=== PATIENT | male | born 1960 | race Caucasian/White ===

== ENCOUNTER 2017-05-02 05:32 | Emergency (ER) | payer OTHER ==
[~2017-05-02] VITALS: Ht 177.8 cm; Wt 93.4 kg
[2017-05-02 05:37] VITALS: TEMP 36.4; Ht 177.8 cm; Wt 93.4 kg
[2017-05-02] MEDS ORDERED: CLIN300C2 PO (05:54)
[2017-05-02] MEDS ORDERED: LISI40TA PO (05:55)
[2017-05-02] MEDS: CLINDAMYCIN 150MG HOME PACK PO ONE (05:59)
[2017-05-02] MEDS: OXYCODONE IR HOME PACK PO ONE (05:59)
[2017-05-02] MEDS: BENZOCAINE 20% (ORAJEL) 11.9 GM TUBE MT STA (05:59)
--- NOTE | 2017-05-02 06:04 | EMERGENCY ROOM VISIT NOTE ---
History First contact with patient: 05:41 Chief Complaint: DENTAL PAIN Stated Complaint: TOOTH Nursing Triage Summary: Pt complains of left sided dental pain and swelling since Monday. History of Present Illness The patient is a 56 year old male who presents to the Emergency Room with complaints of left lower dental pain and swelling for the past few days that is steadily getting worse. Pain 8 out of 10. Worse with chewing and better with rest. It does not radiate. Patient has extensive dental decay. He does not have a dentist. Patient complains of facial pain and swelling. Patient denies chest pain, dyspnea, fevers, sore throat, dysphagia, neck pain, neck stiffness. Review of Systems See HPI for pertinent positives & negatives. A total of 10 systems reviewed and were otherwise negative. Past Medical/Surgical History Hypertension Social History Smoking Status: Current Every Day Smoker Drug Use: none Current/Historical Medications Scheduled Clindamycin Hcl (Cleocin), 300 MG PO QID Lisinopril (Zestril), 40 MG PO DAILY Physical Exam Vital Signs Date Time Temp Pulse Resp B/P (MAP) Pulse Ox O2 Delivery O2 Flow Rate FiO2 05/02/17 05:37 36.4 85 16 152/101 95 Room Air Physical Exam VITALS: Vitals are noted on the nurse's note and reviewed by myself. Vital signs hypertensive GENERAL: Pleasant male with tobacco odor, in no acute distress, nondiaphoretic, well-developed well-nourished. SKIN: The skin was without rashes, erythema, edema, or bruising. There is no tenting of the skin. Capillary reflex less than 2 seconds. HEAD: Normocephalic atraumatic. Face: Left lower jaw line erythematous and edematous concerning for mouth infection EARS: External auditory canals clear, tympanic membranes pearly santizo without erythema or effusion bilaterally. EYES: Pupils equal round and reactive to light and accommodation. Conjunctivae without injection, sclerae without icterus. Extraocular movements intact. NOSE: Patent, turbinates without inflammation or discharge. No sinus tenderness. MOUTH: Mucous membranes moist. Pharynx without erythema or exudate. Uvula midline. Airway patent. Tongue does not deviate. Dental exam: Extensive dental decay, left lower gumline erythematous and edematous with palpable abscess with overlying dental decay with exposed roots. No Kofi angina NECK: Supple without nuchal rigidity. left cervical lymphadenopathy. No thyromegaly. Cervical spine is nontender. No JVD. HEART: Regular rate and rhythm without murmurs gallops or rubs. LUNGS: Clear to auscultation bilaterally without wheezes, rales or rhonchi. No dullness to percussion. No retractions or accessory muscle use. MUSCULOSKELETAL: No muscle atrophy, erythema, or edema noted. NEURO: Patient was alert and oriented to person place and time. Normal sensation to light and sharp touch. No focal neurological deficits. Medical Decision & Procedures ED Course Prior records reviewed and summarized as above. Triage Nursing notes reviewed. The patient's history was concerning for swelling and dental pain Differential diagnosis: Etiologies such as cellulitis, abscess, gingivitis, Kofi angina, as well as others were entertained.. Physical examination: The physical examination was consistent with dental abscess and facial cellulitis ER treatment provided: Clindamycin On reassessment the patient felt better. Diagnostics interpreted by me: Consultation: A consultation was placed with the oral surgeon, Dr. Weiss. The case was discussed and recommended antibiotics and discharged to his office with Hep- Lock in place at 8 AM for definitive care for the dental infection. This appears to be facial and dental abscess. Patient was started on antibiotics. He will be seen by oral surgery within the hour for definitive care for his dental infection. He no signs of airway compromise. No Kofi angina. No signs of meningitis. He is afebrile and nontoxic. He is given his first dose of IV antibiotics. His aunt is driving. He is advised to go straight to Dr. Weiss's office for definitive care. He is agreeable to this. He was advised to return to the ER immediately for fevers, facial swelling, worsening signs or symptoms or as needed. By the evaluation outlined above emergent etiologies such as Kofi angina, as well as others were deemed relatively unlikely. The pt informed about the findings as listed above. All questions were answered and pleased with the treatment. Return instructions were outlined and the patient was discharged in stable condition. Outpatient prescription management: Cleocin Referral: The patient was referred to oral surgery now for a recheck of the current condition and definitive care for his infection. Medical Decision as above [place] Drug Monitoring Program Search Results: patient reviewed within database, no issues identified Medication Reconcilliation Current Medication List: was personally reviewed by me Blood Pressure Screening Patient's blood pressure: Elevated blood pressure Blood pressure disposition: Elevated BP felt to be situational Impression Primary Impression: Cellulitis and abscess of face Additional Impression: Periapical abscess Departure Information Dispostion Home / Self-Care Condition GOOD Prescriptions Clindamycin Hcl (CLEOCIN) 300 Mg Cap 300 MG PO QID for 10 Days, #40 CAP Prov: Parisa Vaughn PA-C 05/02/17 Referrals Nic Weiss D.D.S. Forms HOME CARE DOCUMENTATION FORM, IMPORTANT VISIT INFORMATION Patient Instructions Dental Abscess, My [facility] Additional Instructions Go straight to Dr. Weiss's office. Do not touch your IV lock. Leave this alone. He is awaiting for your arrival. Make sure you have a ride. Clindamycin 300mg: Take one pill 4 times daily for 10 days for your infection. Take with food, but avoid dairy. Avoid prolonged sun exposure since this medication makes you temporarily more susceptible to sunburns. All antibiotics can cause diarrhea. If this occurs and you feel worse or it does not resolve in 1-2 days follow up with your doctor or return to the Emergency Department as this could be signs of serious underlying problems. Any medication can cause an allergic reaction, stop the pills immediately and return to the ER for rash, hives, breathing difficulties, or swelling. Oxycodone (OxyIR) 5mg: Take 1-2 pills every four hours for breakthrough pain. Avoid alcohol, operating machinery or dangerous equipment, working on ladders or roofs, DRIVING, or situations where being under the influence may be dangerous. It is recommended to use an rzcw-wzv-grvjlop stool softener such as Colace, 100mg twice daily while taking this medication to avoid constipation. Ibuprofen(Motrin, Advil) may be used for fever or pain. Use 600mg every six hours as needed. Take with food. Avoid using more than 2400mg in a 24 hour period. Do not use 2400mg per day for more than three consecutive days without physician direction. Prolonged inappropriate use can lead to stomach upset or ulcers. This medication can be taken if you need to drive, work, or perform activities which may be dangerous when taking narcotic pain medication. (AND/OR) Acetaminophen(Tylenol) may be used for fever or pain. Use 1000mg every six hours as needed. Avoid using more than 3000mg in a 24 hour period. This medication can be taken if you need to drive, work, or perform activities which may be dangerous when taking narcotic pain medication. [place] teeth twice a day, floss daily and do warm saltwater gargles 3 times a day. Return to ER sooner for facial swelling, fever, redness, worsening signs or symptoms or as needed. Problem Qualifiers
[2017-05-02] MEDS: CLINDAMYCIN 600 MG/54 ML D5W IV ONE (06:07)
[2017-05-02 06:47] VITALS: BP 151/101; PULSE 82; O2SAT 94
== END 2017-05-02 06:49 | disposition home or self-care (01) ==
LOC: C.EDB 05:34
DX: L03.211 Cellulitis of face (principal); K04.7 Periapical abscess without sinus; I10 Essential (primary) hypertension; F17.200 Nicotine dependence, unspecified, uncomplicated; Z79.899 Other long term (current) drug therapy

== ENCOUNTER → 2018-01-12 | Day surgery (SDC) | payer OTHER ==
[~2018-01-12] VITALS: Ht 180.3 cm; Wt 98.0 kg
[~2018-01-12] MED LIST: ALBUTEROL; AMLO5TAB3 PO; ASPI81TA28 PO; BACITRACIN 50000 UNIT VIAL ONE; CEFAZOLIN 1000MG IV PUSH 7.5 ML IV SCH; CEFAZOLIN SOD 2000MG/15 ML IV PUSH ONE; DEXAMETHASONE SOD INJ 4 MG/ML VIAL ONE; EpHEDrine SULFATE INJ 50 MG/ML AMP ONE; FENTANYL CITRATE INJ 50 MCG/1 ML 2 ML VIAL ONE; GLYCOPYRROLATE INJ 0.2 MG/ML VIAL ONE; LIDOCAINE HCL 2% 2 ML VIAL (20MG/ML) ONE; LISI40TA PO; MIDAZOLAM HCL 1 MG/ML 2ML VIAL ONE; NEOSTIGMINE METHYLSULFATE 5 MG/5 ML SYR ONE; ONDANSETRON INJ 2 MG/ML 2 ML VIAL ONE; OXYC-57 PO; OXYCODONE/ACETAMINOPHEN 5-325 TAB PO PRN; PROPOFOL IV EMULSION 10 MG/ML 20 ML VIAL ONE; ROPIVACAINE 0.5% 5 MG/ML 30 ML VIAL ONE
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
--- NOTE | 2018-01-12 11:21 | History & Physical Bridge Note ---
H&P Re-Evaluation Bridge Note: I have examined the patient, reviewed the History & Physical and in the interval since the performance of the History & Physical I have noted the following changes of clinical significance: No changes noted
[2018-01-12 12:37] VITALS: BP 147/99; PULSE 70; TEMP 36.8; O2SAT 96; Ht 180.3 cm; Wt 98.0 kg
--- NOTE | 2018-01-12 16:44 | [facility] Post Operative Brief Note ---
Immediate Operative Summary Operative Date Jan 12, 2018. Pre-Operative Diagnosis Left ankle degenerative joint disease, left ankle achilles contracture, loose body posterior ankle Post-Operative Diagnosis Left ankle degenerative joint disease, left ankle achilles contracture, loose body posterior ankle Procedure(s) Performed Left Ankle Fusion with Autograft, Percutaneous Tendoachilles Lengthening, Autograft [place] from Fibula, Removal of Loose Body Posterior Ankle Surgeon Dr. Rick Gutierrez Basting Machine Operator Surgeon(s) Bob Sanchez PA-C Estimated Blood Loss 20cc Findings Consistent with Post-Op Diagnosis Specimens None Drains HV x 1 Anesthesia Type General Regional Complication(s) none Disposition Accompanied Pt To Recover: no Disposition: Recovery Room / PACU
--- NOTE | 2018-01-12 17:18 | DIAGNOSTIC IMAGING REPORT ---
L ANKLE 2 VIEWS HISTORY: 57 years-old Male LT ORIF ANKLE FX status post ORIF of the left ankle COMPARISON: None available TECHNIQUE: 2 views of the left ankle were obtained utilizing 32.3 seconds fluoroscopy time FINDINGS: Severe degenerative changes about the tibiotalar joint with absence of the distal fibula. There are 2 cannulated screws fixating the subtalar joint. Alignment is satisfactory. No acute fracture or retained foreign body identified. Expected postsurgical soft tissue swelling and deep tissue air about the ankle with posterior skin candida. IMPRESSION: Fluoroscopic assistance as above. Please see operative report for details. The above report was generated using voice recognition software. It may contain grammatical, syntax or spelling errors. Electronically signed by: Roberto Thapa M.D. 01/12/2018 5:17 PM Dictated Date/Time: 01/12/2018 5:15 PM
--- NOTE | 2018-01-12 17:18 | Discharge Instructions ---
Discharge Instructions Date of Service Jan 12, 2018. Visit Reason for Visit: Left Ankle/Foot Osteoarthritis, Loose Body In Ankl Discharge Discharge Diagnosis / Problem: Left Ankle Osteoarthritis Discharge Goals Goal(s): Decrease discomfort, Improve function Activity Recommendations Activity Limitations: per Instructions/Follow-up section Weightbearing Status: Left weightbearing, Left non-weightbearing Anesthesia . Post Anesthesia Instructions: If you have had General Anesthesia or IV Sedation: * Do not drive today. * Resume driving when surgeon permits. * Do not make important decisions or sign legal documents today. * Call surgeon for: 1. Temperature elevations greater than 101 degrees F. 2. Uncontrollable pain. 3. Excessive bleeding. 4. Persistent nausea and vomiting. 5. Medication intolerance (nausea, vomiting or rash). * For nausea and vomiting use only clear liquids such as: tea, soda, bouillon until nausea subsides, then gradually increase diet as tolerated. * If you have any concerns or questions, call your surgeon's office. If physician is unavailable and it is an emergency, call 911 or go to the nearest emergency room. . Instructions / Follow-Up Instructions / Follow-Up ACTIVITY RECOMMENDATIONS: Limitations: No weight bearing to affected limb at all times. SPECIAL CARE INSTRUCTIONS: * REMOVE YOUR DRAIN MONDAY AT APPROXIMATELY 9:00 AM. LOOSEN THE AUTUMN WRAP. YOU MAY CUT THE THICK COTTON IF YOU NEED TO FOLLOW THE DRAIN TO WHERE IT IS COMING OUT OF THE SKIN. PULL GENTLY UNTIL IT COMES COMPLETELY OUT. REWRAP THE AUTUMN WRAP BACK AROUND THE COTTON DRESSING. * Some drainage onto the dressing is normal and is no cause for alarm. * Some swelling is natural especially after walking. * When resting, keep your foot elevated above the level of your heart. * Call [facility] if you notice: -Increased drainage -Fever over 101 degrees F -Severe constant pain BANDAGE: * Leave bandage/cast in place unless otherwise directed. * Keep bandage/cast dry at all times. FOLLOW UP VISIT WITH DR. HERNANDEZ If appointment is not already scheduled: Please call [facility] after you get home today to schedule a follow-up appointment for [address] Hernandez at . Diet Recommendations Recommended Home Diet: resume previous diet Procedures Procedures Performed: Left Ankle Fusion with Autograft, Percutaneous Tendoachilles Lengthening, Autograft [place] from Fibula, Removal of Loose Body Posterior Ankle Pending Studies Studies pending at discharge: no Medical Emergencies . Who to Call and When: Medical Emergencies: If at any time you feel your situation is an emergency, please call 911 immediately. . Non-Emergent Contact Non-Emergency issues call your: Surgeon Call Non-Emergent contact if: temperature is above 101.5, your pain is not controlled, your pain is worsening, wound has increased drainage, wound has increased redness . . "Provider Documentation" section prepared by Bob Sanchez. . [place] Drug Monitoring Program Search Results: patient reviewed within database, no issues identified
--- NOTE | 2018-01-12 17:44 | DIAGNOSTIC IMAGING REPORT ---
L ANKLE MIN 3 VIEWS ROUTINE HISTORY: 57 years-old Male post-op postoperative exam. Status post ORIF of the left ankle COMPARISON: Left ankle spot fluoroscopic images of same day at 4:12 PM TECHNIQUE: 3 radiographic views of the left ankle FINDINGS: Fine bony detail is obscured secondary to overlying casting material. Postoperative changes are again noted with cannulated screw fixating the tibiotalar joint. Additional cannulated screw is noted about the posterior subtalar joint. Severe degenerative changes of the tibiotalar articulation. Surgical drain is in place. Posterior skin candida. No acute fracture or malalignment. IMPRESSION: Postoperative changes as above with satisfactory alignment. Please see operative report for further details. The above report was generated using voice recognition software. It may contain grammatical, syntax or spelling errors. Electronically signed by: Roberto Thapa M.D. 01/12/2018 5:43 PM Dictated Date/Time: 01/12/2018 5:41 PM
--- NOTE | 2018-01-12 17:47 | Anesthesiology Progress Note ---
Anesthesia Post Op Note Date & Time Jan 12, 2018 at 17:47 Vital Signs Pain Intensity: 0 Vital Signs Past 12 Hours Date Time Temp Pulse Resp B/P (MAP) Pulse Ox O2 Delivery O2 Flow Rate FiO2 01/12/18 17:41 63 13 96 01/12/18 17:41 63 13 01/12/18 17:40 130/88 01/12/18 17:36 69 15 96 01/12/18 17:36 70 15 01/12/18 17:35 129/87 01/12/18 17:31 36.6 69 19 129/87 (89) 94 Nasal Cannula 2 01/12/18 17:31 72 12 95 01/12/18 17:31 73 12 01/12/18 17:30 129/88 01/12/18 17:26 72 14 01/12/18 17:26 72 14 92 01/12/18 17:25 139/96 01/12/18 17:24 74 19 93 01/12/18 17:24 75 19 01/12/18 17:20 133/99 01/12/18 17:19 69 11 89 01/12/18 17:19 69 11 01/12/18 17:15 137/98 01/12/18 17:14 72 16 01/12/18 17:14 72 16 94 01/12/18 17:10 128/86 01/12/18 17:09 80 9 01/12/18 17:09 36.6 68 18 128/86 (96) 96 Nasal Cannula 3 01/12/18 17:09 81 9 95 01/12/18 12:37 36.8 70 18 147/99 (115) 96 Room Air Notes Mental Status: alert / awake / arousable, participated in evaluation Pt Amnestic to Procedure: Yes Nausea / Vomiting: adequately controlled Pain: adequately controlled Airway Patency, RR, SpO2: stable & adequate BP & HR: stable & adequate Hydration State: stable & adequate Anesthetic Complications: no major complications apparent Anesthetic Complications: block is functioning well.
[2018-01-12 18:09] VITALS: BP 139/80; PULSE 75; TEMP 36.4; O2SAT 92
[2018-01-12 18:30] VITALS: BP 138/87; PULSE 66; O2SAT 94
[2018-01-12 18:56] VITALS: BP 137/84; PULSE 67; TEMP 36.4; O2SAT 95
--- NOTE | 2018-01-12 20:12 | OPERATIVE REPORT ---
DATE OF OPERATION: 01/12/2018 PREOPERATIVE DIAGNOSES: 1. Left ankle degenerative joint disease. 2. Achilles tendon contracture. 3. Loose body of the posterior ankle joints. POSTOPERATIVE DIAGNOSES: 1. Left ankle degenerative joint disease. 2. Achilles tendon contracture. 3. Loose body of the posterior ankle joints. PROCEDURE: 1. Left ankle fusion with application of autograft. 2. Percutaneous tendo-Achilles lengthening. 3. Removal of loose body from the posterior ankle joint. 4. Autograft harvest from the distal fibula. SURGEON: Dixon Gutierrez DO FOAM MOLDER: Bob Sanchez PA-C, who was present for patient positioning, sterile prep and drape, management of retractors and instruments. He was present through the critical portions of the case including wound closure, application of sterile dressing and transport of the patient to recovery. ANESTHESIA: General LMA with regional block, left lower extremity. SPECIMENS: None. DRAINS: Hemovac x1. COMPLICATIONS: None. BLOOD LOSS: 20 mL PERTINENT HISTORY: This is a 57-year-old gentleman who had sustained a prior injury to his left ankle. He had previous treatment by another provider, had many years of pain and worsening deformity and discomfort of the left ankle. He attempted and failed conservative management including use of a brace, use of an assistive device, physician-directed home exercises, physical therapy, steroid injections, ice, elevation, and use of oral anti-inflammatories. Radiographs demonstrated severe degenerative joint disease of the left ankle with loss of joint space, marginal osteophytes, subchondral sclerosis, and subchondral cysts. He was also noted to have a large cyst in the distal fibula. The patient is scheduled for surgery as indicated. All potential risks, benefits, complications, alternatives, rehab potential, incomplete relief of symptoms, need for further surgery, DVT, PE, , persistent pain, swelling, scarring, weakness, neurovascular injury, wound complications, hardware failure, nonunion, malunion and bone fracture were discussed with the patient. The patient decided to proceed with the procedure as indicated. DESCRIPTION OF PROCEDURE: The patient was taken to the operating room after induction of general LMA with regional block. The left lower extremity was prepped and draped in the usual sterile fashion. Incision was made over the lateral aspect of the ankle starting from the distal third of the fibula to the tip of the fibula and extending down towards the base of the fourth metatarsal. Dissection was carried down to the subcutaneous tissues. All bleeders were appropriately cauterized. The distal fibula was exposed subperiosteally. It was then osteotomized at the level of the tibial plafond going from lateral proximal to medial distal. The bone was then harvested to be later used as bone graft. Dissection was carried down more distally to the level of the sinus tarsi. The fat of the sinus tarsi was elevated to give access to the lateral side of the talus. A synovectomy was performed of the ankle joint and all the osteophytes that were found were removed. Once this was completed, a laminar anodic operator was placed in the ankle joint itself. Using a series of rongeur and curettes, all of the remaining subchondral bone on the tibia plafond and the dome of the talus was removed. The removal was performed so that when the prepared surfaces were reduced, the ankle would be reduced into alignment which gave neutral dorsiflexion and plantar flexion, 5 degrees of residual calcaneal valgus. Rotation was judged by aligning the midportion of the patella to the midportion of the ankle to the second web space. After completion of removal of the subchondral bone, the joint surfaces were feathered with an 1/4 inch osteotome and drill holes to encourage bony ingrowth. The wounds were the irrigated. The talus was then reduced into the ankle mortise. Two guide wires from 7.3 cannulated screw systems were then introduced from the inferior aspect of the lateral portion of the talus and driven proximally into the distal tibia. Radiographs were performed which showed adequate pin placement. The pins were the overdrilled and then fixed with 7.3 cancellous lag screws. Ridged fixation was obtained. The guide wires were then removed. The wounds were the irrigated. A Hemovac drain was placed on the lateral aspect of the wound. Subcutaneous tissues were closed Vicryl. Skin was closed with candida. Bulky compression dressing was applied and splints applied. Tourniquet deflated. The patient was taken to recovery where they arrived in satisfactory condition. I attest to the content of the Intraoperative Record and any orders documented therein. Any exception s are noted below.
== END | disposition home or self-care (01) ==
LOC: C.ACU 12:22
PROVIDERS: ATTEND Orthopaedic Surgery Sports Medicine
DX: M19.072 Primary osteoarthritis, left ankle and foot (principal); M67.02 Short Achilles tendon (acquired), left ankle; M24.072 Loose body in left ankle; I10 Essential (primary) hypertension; J44.9 Chronic obstructive pulmonary disease, unspecified; E66.9 Obesity, unspecified; Z68.30 Body mass index [BMI] 30.0-30.9, adult

== ENCOUNTER 2019-01-04 02:47 | Observation (INO) ==
[2019-01-04] MEDS ORDERED: MoRPHine SULFATE 4 MG/ML 1 ML CARP\\VIAL IV STA ×3 (03:14→07:45)
[2019-01-04] MEDS ORDERED: ONDANSETRON INJ 2 MG/ML 2 ML VIAL IV STA (03:14)
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
[2019-01-04 03:40] LABS: Basophils # (auto) 0.02 K/uL (0-0.2); Basophils % (auto) 0.1 %; Eosinophils # (auto) 0.09 K/uL (0-0.5); Eosinophils % (auto) 0.7 %; Hematocrit (blood only) 47.7 % (42-52); Hemoglobin 16.7 g/dL (14.0-18.0); Immature Granulocytes # (auto) 0.04 K/uL (0.00-0.02); Immature Granulocytes % (auto) 0.3 %; Lymphocytes # (auto) 1.87 K/uL (1.2-3.4); Lymphocytes % (auto) 13.8 %; Mean Platelet Volume 9.2 fL (7.4-10.4); Monocytes # (auto) 1.61 K/uL (0.11-0.59); Monocytes % (auto) 11.9 %; Neutrophils % (auto) 73.2 %; Platelet Count 239 K/uL (130-400); RDW Coefficient of Variation 13.6 % (11.5-14.5); RDW Standard Deviation 43.6 fL (36.4-46.3); Red Blood Count 5.42 M/uL (4.7-6.1); White Blood Count 13.53 K/uL (4.8-10.8)
[2019-01-04] MEDS ORDERED: PIPERACILLIN/TAZOBACTAM 4.5 GM/120 ML BAG IV ONE (03:41)
[2019-01-04] MEDS ORDERED: PIPERACILL/TAZOBAC CONSULT ACTIVE PRN ×2 (03:41→09:54)
[2019-01-04 03:55] LABS: iSTAT Creatinine 0.8 mg/dl (0.6-1.3); iSTAT Hemoglobin 17.7 g/dl (14.0-18.0); iSTAT Ionized Calcium 1.14 mmol/l (1.12-1.32); iSTAT Potassium 3.8 mEq/L (3.3-5.0)
[2019-01-04 04:07] LABS: Albumin Level 2.9 gm/dl (3.4-5.0); BUN Creatinine Ratio 20.8 (10-20); Calcium 8.4 mg/dl (8.5-10.1); Creatinine Clr Calc Pharmacy 99.6 ml/min; Est GFR (African American) 110.3; Est GFR (Non-African American) 95.2; Potassium 3.8 mmol/L (3.5-5.1)
[2019-01-04 04:10] LABS: Albumin Globulin Ratio 0.6 (0.9-2); Bilirubin,Total 0.7 mg/dl (0.2-1); Globulin 4.6 gm/dl (2.5-4.0); Total Protein 7.5 gm/dl (6.4-8.2)
[2019-01-04] MEDS ORDERED: IOVERSOL 100ml IV PRN (04:18)
--- NOTE | 2019-01-04 07:49 | Emergency Department Note ---
ED Visit Note Nursing staff spoke with me about this patient, stating the patient is requesting more pain medication. He is awaiting admission to the hospital for abscess/cellulitis. I reviewed the patient's chart, he has previously received IV morphine without complication and his last dose was 4am per nursing staff. I did place an order for 4mg IV morphine for the patient, pending hospital admission.
--- NOTE | 2019-01-04 08:27 | CT Scan Report ---
CT SCAN OF THE PELVIS WITH IV CONTRAST CLINICAL HISTORY: Gluteal infection. COMPARISON STUDY: CT scan of the pelvis dated 10/30/2018. TECHNIQUE: Following the IV administration of 93 cc of Optiray 320, CT scan of the pelvis is performe d from the pelvic inlet to the proximal femora. Images are reviewed in the axial, sagittal, and coron al planes. IV contrast was administered without complication. The patient was scanned prone. A dose l owering technique was utilized adhering to the principles of ALARA. CT DOSE: 758.46 mGy.cm FINDINGS: The bladder, prostate, and seminal vesicles are normal as imaged. There is no pelvic sidewall or ingu inal lymphadenopathy. The iliac vessels are patent. The visualized loops of small bowel and colon are normal in caliber. There is mild diverticulosis of the sigmoid colon without CT evidence of acute di verticulitis. No free fluid is seen in the pelvis. The bony pelvis appears intact. No lytic or blastic lesion is seen. Mild degenerative sclerosis is se en in the left sacroiliac joint. A benign-appearing lucency in the left iliac wing measuring 2 cm is unchanged from previous. Mild arthritic change is noted in the hips. The regional musculature is norm al and symmetric. There is dermal thickening and significant inflammation identified within the right gluteal soft tiss ues along the median gluteal crease. Milder similar-appearing change is present along the left median gluteal crease. Bilateral perianal fistulous tracts are identified. There is a thick-walled and ayesha pherally enhancing fluid collection identified in the right buttock seen on image #127 which measures approximately 4 x 3 cm consistent with abscess. This communicates with the right-sided perianal fist abel which extends to the dermal surface of the right buttock. The fistulous tract measures 12 mm in d iameter and contains fluid as seen on axial image #118 of 170. There is also fluid within the left fi stulous tract seen on image #116. The left perianal fistula also extends to the dermal surface and me asures up to 12 mm in diameter. The fistulas extend to the anal ring at the 6:00 position. No periana l abscess is seen. IMPRESSION: 1. 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 2. There is an abscess identified within the soft tissues of the right buttock which measures approxi mately 4 x 3 cm. This communicates with the right-sided perianal fistula. Dictated: 01/04/2019 7:59 AM Transcribed: 01/04/2019 8:14 AM Vero [id number] [facility] Electronically signed by: Dago Dela Cruz M.D. 01/04/2019 8:26 AM
[2019-01-04] MEDS ORDERED: MoRPHine SULFATE 4 MG/ML 1 ML CARP\\VIAL IV PRN (08:35)
[2019-01-04] MEDS ORDERED: POLYETHYLENE (MIRALAX) 17 GM PACK PO PRN (09:54)
[2019-01-04] MEDS ORDERED: ONDANSETRON INJ 2 MG/ML 2 ML VIAL IV PRN (09:54)
[2019-01-04] MEDS ORDERED: SODIUM CHLORIDE 0.9% 1000ML 1,000 ML IV SCH (09:54)
[2019-01-04] MEDS ORDERED: ALBUTEROL HFA 8 GM INHALER INH PRN (09:54)
[2019-01-04] MEDS ORDERED: ALUMINUM/MAGNESIUM SUSP 30 ML UDC PO PRN (09:54)
[2019-01-04] MEDS ORDERED: BUPIVACAINE/EPINEPHRINE 0.5% MPF 1:200,000 30 ML VIAL ONE (11:04)
[2019-01-04] MEDS ORDERED: fentaNYL citrate 100 MCG/2 ML VIAL ONE (11:12)
[2019-01-04] MEDS ORDERED: LIDOCAINE HCL 2% 2 ML VIAL/AMP(20MG/ML) INFIL ONE (11:12)
[2019-01-04] MEDS ORDERED: ONDANSETRON INJ 2 MG/ML 2 ML VIAL ONE (11:12)
[2019-01-04] MEDS ORDERED: PROPOFOL IV EMULSION 10 MG/ML 20 ML VIAL IV ONE (11:12)
[2019-01-04] MEDS ORDERED: DEXAMETHASONE SOD INJ 4 MG/ML VIAL ONE (11:12)
[2019-01-04] MEDS ORDERED: MIDAZOLAM HCL 1 MG/ML 2ML VIAL ONE (11:12)
[2019-01-04] MEDS: PIPERACILLIN/TAZOBACTAM 3.375 GM in DEXTROSE 5% 100 ML IV SCH ×2 (11:14→17:27)
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
[2019-01-04] MEDS ORDERED: ePHEDrine sulfate 50 MG/ML AMP IV PRN (12:12)
[2019-01-04] MEDS ORDERED: ATROPINE SULFATE 0.1 MG/ML 10ML SYR IV PRN (12:12)
--- NOTE | 2019-01-04 12:44 | Operative Report ---
Post Operative Report Pre & Post Diagnosis Operation Date: 01/04/19 14:45 Pre-Op Diagnosis: PERIANAL ABSCESS Post-Op Diagnosis: PERIANAL ABSCESS Procedure Operation Date: 01/04/19 14:45 Actual Procedures p Incision and Drainage Perirectal Abscess(Right) - Mahesh Claire DO Surgeon Mahesh Claire DO Ui Designer n/a Estimated Blood Loss 5 Findings Consistent with Post-Op Diagnosis Specimens fluid for gram stain/C & S Description of Procedure After informed consent was obtained the patient was taken to the operating room and a saddle block performed by anesthesia. After this IV sedation was obtained the patient was placed in a left lateral Fowlers position. The perianal area was sterilely prepped and draped in usual fashion. 11 blade scalpel was used to make a vertical incision directly over the palpable abscess. This expressed a large amount of purulent fluid. It was not foul-smelling. Sample was taken and sent for Gram stain culture and sensitivity. Finger fractionation was used to enter the abscess cavity. It was thoroughly irrigated until all the purulent fluid was extracted. 1/2 inch Ramon drain was placed and secured to the skin using 2-0 nylon. Sterile dressing was applied. The patient was awakened and transferred recovery in stable condition. I attest to the content of the Intraoperative Record and any orders documented therein. Any exceptions are noted below.
--- NOTE | 2019-01-04 13:21 | Anesthesiology Progress Note ---
Date of Service January 04, 2019 Anesthesia Post Procedure Vital Signs Vital Signs: Temp Pulse Pulse Resp BP BP BP 01/04/19 13:15 68 18 125/73 01/04/19 13:05 37.7 C H 68 23 126/71 01/04/19 12:55 69 21 118/76 01/04/19 12:45 37.2 C 75 16 122/76 01/04/19 11:46 37.9 C H 74 18 139/83 01/04/19 09:45 37 C 79 18 128/80 01/04/19 09:00 61 20 109/60 01/04/19 08:30 60 16 110/65 01/04/19 08:00 65 14 125/62 01/04/19 07:58 65 18 125/62 01/04/19 07:30 61 20 117/75 01/04/19 07:01 65 16 126/74 01/04/19 05:30 59 L 19 119/71 01/04/19 05:00 63 19 01/04/19 04:30 62 22 01/04/19 04:20 63 23 01/04/19 04:17 61 18 128/76 01/04/19 02:49 36.4 C L 83 18 135/90 Pulse Ox 01/04/19 13:15 94 01/04/19 13:05 96 01/04/19 12:55 94 01/04/19 12:45 96 01/04/19 11:46 97 01/04/19 09:45 96 01/04/19 09:00 95 01/04/19 08:30 95 01/04/19 08:00 98 01/04/19 07:58 98 01/04/19 07:30 96 01/04/19 07:01 97 01/04/19 05:30 97 01/04/19 05:00 96 01/04/19 04:30 95 01/04/19 04:20 95 01/04/19 04:17 95 01/04/19 02:49 96 Pain Intensity Rectal: Pain Intensity: 0 Transfer of Care Handoff Completed per policy Notes Mental Status: alert / awake / arousable Patient Amnestic to Procedure: Yes Nausea / Vomiting: adequately controlled Pain: adequately controlled Airway Patency, RR, SpO2: stable & adequate BP & HR: stable & adequate Hydration State: stable & adequate Neuraxial Anesthesia: was administered and sensory block is resolving Anesthetic Complications: no major complications apparent
[2019-01-04] MEDS: AMLODIPINE BESYLATE 5 MG TAB PO SCH ×2 (13:53→13:54)
[2019-01-04] MEDS: HYDROCODONE/ACETAMOPHEN 5/325MG TAB PO PRN ×2 (15:35→19:40)
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
[2019-01-04] MEDS: NICOTINE 14 MG/24 HR PATCH TD SCH (19:05)
[2019-01-04] MEDS: MoRPHine SULFATE 4 MG/ML 1 ML CARP\\VIAL IV PRN (22:25)
[2019-01-05] MEDS: HYDROCODONE/ACETAMOPHEN 5/325MG TAB PO PRN ×5 (01:41→21:02)
[2019-01-05] MEDS: PIPERACILLIN/TAZOBACTAM 3.375 GM in DEXTROSE 5% 100 ML IV SCH ×3 (01:41→17:36)
[2019-01-05] MEDS: MoRPHine SULFATE 4 MG/ML 1 ML CARP\\VIAL IV PRN ×2 (05:37→22:38)
[2019-01-05 06:59] LABS: Hematocrit (blood only) 42.5 % (42-52); Hemoglobin 14.9 g/dL (14.0-18.0); Mean Corpuscular Hgb Conc 35.1 g/dL (32-36); Mean Corpuscular Volume 88.5 fL (80-100); Mean Platelet Volume 8.8 fL (7.4-10.4); Platelet Count 227 K/uL (130-400); RDW Coefficient of Variation 13.3 % (11.5-14.5); RDW Standard Deviation 42.9 fL (36.4-46.3); White Blood Count 12.39 K/uL (4.8-10.8)
[2019-01-05 07:23] LABS: BUN Creatinine Ratio 15.8 (10-20); Calcium 8.4 mg/dl (8.5-10.1); Creatinine Clr Calc Pharmacy 110.1 ml/min; Est GFR (African American) 114.9; Est GFR (Non-African American) 99.2; Magnesium 1.9 mg/dl (1.8-2.4); Potassium 3.8 mmol/L (3.5-5.1)
[2019-01-05] MEDS: NICOTINE 14 MG/24 HR PATCH TD SCH ×2 (08:00→15:21)
[2019-01-05] MEDS: AMLODIPINE BESYLATE 5 MG TAB PO SCH (08:01)
--- NOTE | 2019-01-05 12:11 | Hospitalist Progress Note ---
Date of Service January 05, 2019 Assessment & Plan (1) Anal fissure and fistula: - Ayesha-anal fistula and abscess noted on colonoscopy on 01/03; follows with [facility]. - Pelvis CT on admission showed bilateral perianal fistulas with surrounding cellulitis, abscess within soft tissues of right buttocks 4 x 3 cm and associated with right perianal fistula. - Wound culture +Streptococcus species, follow sensitivities. - Continue Zosyn IV for empiric coverage; low grade fevers noted on 01/04. - Gen surg consulted, s/p I&D ayesha-anal abscess on 01/04. Has had mild improvement in ayesha-anal pain following procedure. - Morphine 4 mg IV q3hr & [place] prn pain -- encourage PO med use to prepare for discharge. - Will need to follow up with colorectal surgery at [facility] after discharge. (2) Perirectal abscess: - As noted above. (3) Leukocytosis: - Likely related to acute infection; now trending down. (4) HTN (hypertension): - Continue home Amlodipine; holding Lisinopril, BP has been stable. (5) COPD (chronic obstructive pulmonary disease): - Continue home Albuterol prn. - No evidence of acute exacerbation. (6) Tobacco abuse: - Smokes 5-7 cigs per day. - Encourage tobacco cessation. - Nicotine patch ordered. (7) DVT prophylaxis: - SCDs; encourage ambulation and hold pharmacologic ppx. Dispo: Discharge pending improvement in pain control. Subjective Pt. has ongoing right sided buttock pain today, rated as a 6/10. Pain has slightly improved following I&D but he is still requiring IV narcotics. Surgery following, appreciate input. Review of Systems Review of Systems: All systems reviewed & are unremarkable except as noted in HPI & below Constitutional: no fever, no chills, no fatigue, no weakness and no anorexia Respiratory: no cough, no dyspnea, no dyspnea on exertion and no wheezing Cardiovascular: no chest pain, no palpitations and no edema Gastrointestinal: + constipation and + problem reported (Ayesha-rectal pain ); no abdominal pain, no nausea and no vomiting Genitourinary: no difficulty urinating Musculoskeletal: no back pain and no joint pain Physical Exam Physical Exam: General: Resting comfortably HEENT: NC/AT; PERRLA with EOMI; [place] conjunctiva, MMM. No erythema of posterior pharynx Neck: Supple and nontender Cardiac: RRR Lungs: CTA bilaterally Abdomen: Bowel normoactive X 4; Nontender to palpation Rectal: Did not complete rectal exam during rounds. Extremities: Warm. No edema present Neuro: No focal weakness Skin: No rash Results & Data Vital Signs (Past 12 Hours) Vital Signs Temp Pulse Resp BP Pulse Ox 01/05/19 11:00 36.6 C 69 18 120/79 98 01/05/19 07:33 37.1 C 62 16 139/73 98 01/05/19 03:40 37.1 C 57 L 18 102/68 97 Laboratory Results 01/05/19 01/05/19 01/05/19 Range/Units 06:27 06:27 06:27 WBC 12.39 H (4.8-10.8) K/uL RBC 4.80 (4.7-6.1) M/uL Hgb 14.9 (14.0-18.0) g/dL Hct 42.5 (42-52) % MCV 88.5 (80-100) fL MCH 31.0 (25-34) pg MCHC 35.1 (32-36) g/dL RDW Std Deviation 42.9 (36.4-46.3) fL RDW Coeff of Angelito 13.3 (11.5-14.5) % Plt Count 227 (130-400) K/uL MPV 8.8 (7.4-10.4) fL Sodium 133 L (136-145) mmol/L Potassium 3.8 (3.5-5.1) mmol/L Chloride 100 (98-107) mmol/L Carbon Dioxide 28 (21-32) mmol/L Anion Gap 5.0 (3-11) BUN 12 (7-18) mg/dl Creatinine 0.76 (0.6-1.4) mg/dl Est Cr Clr Drug Dosing 110.1 ml/min Est GFR ( Amer) 114.9 Est GFR (Non-Af Amer) 99.2 BUN/Creatinine Ratio 15.8 (10-20) Glucose 102 H (70-99) mg/dl Calcium 8.4 L (8.5-10.1) mg/dl Magnesium 1.9 (1.8-2.4) mg/dl Hepatitis C Ab Screen Neg (Neg) PG Care Time/CCT Total # of Minutes Spent Total Time Spent with Patient: Total time spent is greater than 50% in coordination of care (as documented) at patient's floor/unit and/or counseling patient:
[2019-01-05] MEDS ORDERED: Nursing to Pharmacy Communication ONE (15:29)
[2019-01-05] MEDS: ACETAMINOPHEN 325 MG TAB PO PRN (19:34)
[2019-01-06] MEDS: PIPERACILLIN/TAZOBACTAM 3.375 GM in DEXTROSE 5% 100 ML IV SCH ×2 (02:03→09:33)
[2019-01-06] MEDS: HYDROCODONE/ACETAMOPHEN 5/325MG TAB PO PRN ×2 (05:35→09:32)
[2019-01-06 06:25] LABS: Mean Corpuscular Hgb Conc 35.7 g/dL (32-36); Mean Corpuscular Volume 88.2 fL (80-100); Platelet Count 250 K/uL (130-400); RDW Standard Deviation 41.7 fL (36.4-46.3); Red Blood Count 4.76 M/uL (4.7-6.1); White Blood Count 9.04 K/uL (4.8-10.8)
[2019-01-06 06:53] LABS: BUN Creatinine Ratio 12.1 (10-20); Calcium 8.8 mg/dl (8.5-10.1); Creatinine Clr Calc Pharmacy 103.3 ml/min; Est GFR (Non-African American) 96.6; Potassium 4.2 mmol/L (3.5-5.1)
[2019-01-06] MEDS: ACETAMINOPHEN 325 MG TAB PO PRN (08:17)
[2019-01-06] MEDS: AMLODIPINE BESYLATE 5 MG TAB PO SCH (08:17)
[2019-01-06] MEDS: NICOTINE 14 MG/24 HR PATCH TD SCH (08:18)
--- NOTE | 2019-01-06 09:33 | Surgery Progress Note ---
Date of Service January 06, 2019 Assessment & Plan (1) Perirectal abscess: doing well/ok for d/c instructions given. discussed with primary team. home on antibiotics f/u in 4-5 days for drain removal. Subjective still some pain at drain site but overall feeling better. Results & Data Vital Signs (Past 12 Hours) Vital Signs Temp Pulse Resp BP BP Pulse Ox 01/06/19 08:15 36.4 C L 59 L 16 139/87 98 01/05/19 23:40 36.8 C 55 L 18 102/54 L 96 01/05/19 22:35 37.3 C 66 16 133/74 97 PG Care Time/CCT Total # of Minutes Spent Total Time Spent with Patient: Total time spent is greater than 50% in coordination of care (as documented) at patient's floor/unit and/or counseling patient:
--- NOTE | 2019-01-06 10:53 | Discharge Summary ---
Date of Service January 06, 2019 Admission HPI Per Admitting Provider Mr. Kwok is a 58 year old with past medical history of COPD, Tobacco abuse, HTN who presented with rectal pain. Pt. reports he has had issues with rectal abscesses since 1995. Abscesses have drained on their own in the past but he noticed increased rectal pain starting MondayDecember 31. He has been evaluated by [facility] and completed a colonoscopy yesterday (01/03/19); report noted a perianal abscess and fistula, colo-rectal surgery follow up recommended especially for the fistulae. He was discharged to home following the procedure but had uncontrolled rectal pain at site of abscess. He denies feve r/chills, chest pain, SOB, LE edema, abdominal pain, N/V, dysuria or hematuria. BM have been formed, denies melena or hematochezia. ER course: He received Zosyn IV for empiric coverage along with Morphine IV for pain control. He will be admitted for general surgery consult and I&D of abscess. Admission Exam Per Admitting Provider See H&P. Principal Diagnosis Perianal abscess Discharge Exam Temp Pulse Resp BP Pulse Ox 36.4 C L 59 L 16 139/87 98 01/06/19 08:15 01/06/19 08:15 01/06/19 08:15 01/06/19 08:15 01/06/19 08:15 Pt is afebrile. Vital signs stable. [place] drain remains in place draining a moderate amount of serosanguineous fluid. Right buttock noted to be indurated with erythema. Constitutional average body habitus; no acute distress ENMT Ears: no hearing impairment Neck normal visual inspection Respiratory normal respiratory effort, lungs clear to auscultation Cardiovascular RRR, no murmur, no edema Gastrointestinal (Abdomen) Inspection/Auscultation: normal bowel sounds Percussion/Palpation: abdomen soft; abdomen nontender Psychiatric A+Ox3, euthymic affect Discharge Data Allergies Allergy/AdvReac Type Severity Reaction Status Date / Time No Known Allergies Allergy Verified 01/04/19 02:57 Consultations 01/04/19 06:47 ED Decision to Admit Stat Procedures Performed Operation Date: 01/04/19 14:45 Actual Procedures p Incision and Drainage Perirectal Abscess(Right) - Mahesh Claire, Ordered Studies 01/04/19 03:14 CT pelvis w/IV con only Urgent Hospital Course (1) Anal fissure and fistula: - 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 - Pelvis CT on admission showed bilateral perianal fistulas with surrounding cellulitis, abscess within soft tissues of right buttocks 4 x 3 cm and associated with right perianal fistula. - Wound culture +Streptococcus species, follow sensitivities. - Pt remains on Zosyn. Will be discharged home on Augmentin per Dr. Claire recommendations. - Gen surg consulted, s/p I&D marlyn-anal abscess on 01/04. Drain remains in place. Continues to have intermittent pain improved with [place]. - Will need to follow up with colorectal surgery at [facility] after discharge. Pt to f/u with Dr. Claire in 1 week for ramon drain removal as well. - Plan to d/c home today on Augmentin and [place]. (2) Perirectal abscess: - As noted above. (3) Leukocytosis: Normalized today. (4) HTN (hypertension): - Continue home Amlodipine; holding Lisinopril, BP has been stable. - F/u with PCP for BP recheck. (5) COPD (chronic obstructive pulmonary disease): - Continue home Albuterol prn. - No evidence of acute exacerbation. (6) Tobacco abuse: - Smokes 5-7 cigs per day. - Encourage tobacco cessation - Nicotine patch ordered (7) DVT prophylaxis: - SCDs; encourage ambulation and hold pharmacologic ppx. Dispo: Discharge pending improvement in pain control. Total Time Total Time Spent Total Time Spent (In Minutes): 120 minutes. Total Time Includes: Examination of the Patient, Discharge Planning, Medication Reconciliation and Communication With Other Providers Discharge Plan Discharge Items Patient Disposition: Home - Self-Care Reason For Visit: PERIANAL ABSCESS Discharge Diagnosis: Perianal abscess Condition: Good Discharge Goals: Decrease discomfort and Therapeutic intervention Activity: As commented below Activity Comment: Light activity until follow-up with Dr. Claire. Lifting: No more than 10 pounds Lifting Comment: Until cleared by Dr. Claire. Bathing Comment: ok to shower Sexual Activity: Wait until after follow-up appointment Exercise/Sports: Rest today Driving/Machine Use: Resume 3 days after discharge Driving/Machine Use Comment: Do not drive while taking narcotics. Non-emergency contact: Surgeon Call non-emergency contact if: your pain is not controlled, you have a fever and your temperature is above 101.5 Follow-up/Referrals: Kenny Bell III, MD [Primary Care Provider] - Mahesh Claire, [Surgeon] - (Call to make an appt for next week to have drain removed) Diet: Regular Addtl Provider Instructions: Follow-up with PCP in 1-2 weeks. Discontinue Lisinopril as blood pressure has been well controlled. Discuss with Dr. Bell at follow-up if you need to resume the medication. Follow-up with Dr. Claire in 1 week for Ramon drain removal. Prescriptions: New hydrocodone-acetaminophen [[place]] 5-325 mg tablet 1 - 2 tab PO Q4H PRN (Reason: pain, initial therapy) Qty: 15 RF: 0 hydrocodone-acetaminophen [[place]] 5-325 mg Tablet 1 tab PO Q4H PRN (Reason: pain) 10 Days Qty: 40 RF: 0 amoxicillin-pot clavulanate [Augmentin] 875-125 mg tablet 1 tab PO BID 14 Days Qty: 28 RF: 0 Continued amlodipine 5 mg Tablet 5 mg PO QAM RF: 0 albuterol sulfate [Ventolin HFA] 90 mcg/actuation Hfa Aerosol Inhaler 2 puff INHALATION Q6H PRN (Reason: Shortness Of Breath) RF: 0 Discontinued lisinopril 40 mg Tablet 40 mg PO QAM RF: 0 Stand-Alone Forms: [place], Opioid Pain [facility] [employer]/Other Patient Handouts: Amoxicillin Trihydrate Oral tablet Discharge Orders: Discharge Order (Routine); Ordered 01/06/19 Ordered By: Rena oN Admission Data Admit Date/Time: 01/04/19 08:29 Attending Provider: Alexis Lindsay Admit Provider: Gemini Perdomo Primary Care Provider: Kenny Bell III Other Providers: Alexis Lindsay Service: Medical Other Interventions: Discharge Summary Assessment (RN) Last Done: 01/06/19 11:49 Pending Studies at Discharge: No DC Date/Time DO NOT enter until pt leaves facility: 01/06/19 12:26 Supervising Physician Co-Signing Physician Notes Patient seen and examined with Rena POWERS. I agree with her discharge summary. Case was discussed with her as well as the villatoro points in treatment. I personally reviewed the lab work and imaging and other diagnostic studies. - Perianal abscess: s/p incision and drainage with general surgery pain is better on Oxycodone drains in place no fever, vitals stable okay with discharge per Dr. Canchola send home on Augmentin, follow up for drain removal in office this week
== END 2019-01-06 12:26 | disposition home or self-care (01) ==
LOC: ED 02:47 → 3N 02:47 → SUATTDRO 08:29 → 3N 09:27